=== PATIENT | female | born 1985 | race Caucasian/White ===

== ENCOUNTER 2017-06-19 20:38 | Emergency (ER) | payer SELFPAY ==
[2017-06-19 20:47] VITALS: BP 138/76
--- NOTE | 2017-06-19 21:09 | RADIOLOGY REPORT (SQ) ---
EXAM DESCRIPTION: ANKLE RIGHT COMPLETE COMPLETED DATE/TIME: 06/19/2017 8:57 pm REASON FOR STUDY: post op pain COMPARISON: None. NUMBER OF VIEWS: Three views. TECHNIQUE: AP, lateral, and oblique radiographic images acquired of the right ankle. LIMITATIONS: None. FINDINGS: MINERALIZATION: Normal. BONES: A subacute fracture of the medial malleolus is present. 2 long cannulated screws extend throu gh the medial malleolus. Healing is incomplete. JOINTS: No effusions. SOFT TISSUES: Soft tissue swelling is more prominent medially. OTHER: No other significant finding. IMPRESSION: Soft tissue swelling could be residual from the fracture. Is there clinical evidence of infection? TECHNICAL DOCUMENTATION: JOB ID: [id number] [employer]- All Rights Reserved Reading location - IP/workstation name: [email or web address]
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
[2017-06-19] MEDS ORDERED: ACETAMINOPHEN 325 MG TABLET PO ONE (22:16)
--- NOTE | 2017-06-21 09:12 | XCELERA REPORT ---
[address] [address] Lower Extremity Venous Evaluation Name: SURAJ MORENO Age: 31 yrs Gender: Female : 1985 Patient Status: Emergency Patient Location: ER Study Date: 06/19/2017 10:05 PM Procedure: Color flow and duplex imaging of the veins of the right lower extremity as well as the left Common Femoral vein. Reason For Study: Rt LE swelling/pain Ordering Physician: SORAYA LAM PA-C Performed By: Josefina León Right Sided Venous Evaluation Normal vessel filling wall to wall, compression and augmentation as well as Colour flow down to the infrageniculate veins. Left Sided Venous Evaluation The left common femoral vein is fully compressible. Spontaneous and phasic flow is present in the left common femoral vein. Interpretation Summary No duplex evidence of DVT or obstruction in the right lower extremity nor in the left Common Femoral vein. : SORAYA LAM PA-C > Dale Sousa
== END 2017-06-19 22:52 | disposition home or self-care (01) ==
LOC: ER 20:38
DX: M79.604 Pain in right leg (principal); M25.571 Pain in right ankle and joints of right foot; M79.89 Other specified soft tissue disorders; F17.210 Nicotine dependence, cigarettes, uncomplicated
CPT/HCPCS: 99284; 93971 ×2; 73610; L4350; L1902

== ENCOUNTER 2017-10-10 16:15 | Emergency (ER) | payer SELFPAY ==
[2017-10-10] MEDS ORDERED: OXYCODONE-ACETAMINOPHEN 5-325 MG TABLET PO ONE (16:45)
--- NOTE | 2017-10-10 17:06 | RADIOLOGY REPORT (SQ) ---
EXAM DESCRIPTION: ELBOW RIGHT OVER 2 VIEWS COMPLETED DATE/TIME: 10/10/2017 4:57 pm REASON FOR STUDY: injury swelling COMPARISON: None. NUMBER OF VIEWS: Five views. TECHNIQUE: AP, lateral, and both oblique radiographic images acquired of the right elbow. LIMITATIONS: None. FINDINGS: MINERALIZATION: Normal. BONES: Old healed fracture involving the distal humerus with screw and plate devices noted in place. No acute fracture. JOINT: No effusion. Mild degenerative changes. SOFT TISSUES: Mild soft tissue edema laterally just above the elbow. OTHER: No other significant finding. IMPRESSION: Old healed fracture without evidence of acute fracture. TECHNICAL DOCUMENTATION: JOB ID: [id number] [employer]- All Rights Reserved Reading location - IP/workstation name: [email or web address]
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
--- NOTE | 2017-10-10 19:25 | RADIOLOGY REPORT (SQ) ---
EXAM DESCRIPTION: CT RT UPPER EXTREMITY WITHOUT COMPLETED DATE/TIME: 10/10/2017 6:46 pm REASON FOR STUDY: Hx fx, extensive swelling, hardware, eval ?fx COMPARISON: Radiographs of right elbow 10/10/2017 TECHNIQUE: Axial imaging performed through the right elbow with reformatted coronal and sagittal rudolph ging windowed for bone and soft tissues. Images saved to PACS. 3D IMAGING: Were 3D images as MIP, SSD, or volume rendering performed at the work station? No All CT scanners at this facility use dose modulation, iterative reconstruction, and/or weight based d osing when appropriate to reduce radiation dose to as low as reasonably achievable (ALARA). [facility]: Dose Right [facility]: CareDose [facility]: Dose Right [facility]: Teradose 4D [facility]: [employer] LIMITATIONS: Artifact from hardware. RADIATION DOSE: CT Rad equipment meets quality standard of care and radiation dose reduction techniq ues were employed. CTDIvol: 2.6 mGy. DLP: 75 mGy-cm. mGy. FINDINGS: SOFT TISSUES: No obvious swelling or foreign body. BONES: Medial and lateral compression plates are present on the distal humerus and elbow. Multiple s crews are present. No acute fracture is seen. MINERALIZATION: Normal. OTHER: No other significant finding. IMPRESSION: Limited study with extensive hardware in the distal humerus. No acute fracture is appre ciated. TECHNICAL DOCUMENTATION: JOB ID: [id number] Quality ID # [id number]: Final reports with documentation of one or more dose reduction techniques (e.g., Au tomated exposure control, adjustment of the mA and/or kV according to patient size, use of iterative reconstruction technique) 2010 [employer]- All Rights Reserved Reading location - IP/workstation name: [email or web address]
[2017-10-10 19:43] VITALS: BP 127/70
== END 2017-10-10 19:46 | disposition home or self-care (01) ==
LOC: ER 16:15
DX: S49.91XA Unspecified injury of right shoulder and upper arm, initial encounter (principal); W10.9XXA Fall (on) (from) unspecified stairs and steps, initial encounter; F17.210 Nicotine dependence, cigarettes, uncomplicated
CPT/HCPCS: 99284